=== PATIENT | male | born 1995 | race Caucasian/White ===

== ENCOUNTER 2019-11-03 20:16 | Emergency (ER) | payer OTHER, SELFPAY ==
--- NOTE | 2019-11-03 20:01 | EKG12_ITS ---
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 Rate : 068 BPM Atrial Rate : 068 BPM P-R Int : 152 ms QRS Dur : 100 ms QT Int : 426 ms P-R-T Axes : 027 097 078 degrees QTc Int : 452 ms Normal sinus rhythm Normal ECG Confirmed by MADAY GODINEZ ([id number]), desk editor CATALINA LANIER ([id number] on 11/05/2019 11:57:15 AM Referred By: RONALDO Confirmed By:MADAY GODINEZ
[2019-11-03 20:17] VITALS: BP 120/71; PULSE 57; RESP 17; TEMP 36; O2SAT 99; BMI 21.1
--- NOTE | 2019-11-03 21:07 | ED.VIS.GEN ---
History of Present Illness Chief Complaint: Syncope Informant: Patient Onset: Today Narrative: Patient is a 24-year-old male with no past medical history presenting after syncopal episode. Patient was in the TCU visiting family. He was getting up to leave when he felt dizzy and lightheaded. Patient states he started get tunnel vision. He felt like he might pass out. said he grabbed the door when he like he was falling. She helped lower him to the ground. Patient did not hit his head. Patient came to immediately. She notes he looked a little sweaty when he woke up. EKG and a blood sugar were performed in the TCU and patient was sent down to the emergency room for evaluation. Patient currently states he feels better. He remembers the events except for when he passed out. He denies any complaints at this time. He denies any family history of any sudden cardiac or premature cardiac disease. Past Medical History - Allergies and Home Meds Allergies/Adverse Reactions: Allergies No Known Allergies Allergy (Verified 11/03/19 20:16) Primary Care Physician: Adis Laguna MD [Primary Care Provider] - Past Medical History: None Surgical History: noncontributory Lives: Spouse/ Significant Other Smoking Status: Never smoker Review of Systems General: Reports: - - Syncope. Denies: Chills, Fever, Sweats Eyes: Denies: Visual changes - bilaterally, Diplopia ENT: Denies: Rhinorrhea, Sore throat Cardiovascular: Denies: Chest pain, Palpitations Respiratory: Denies: Dyspnea, Cough, Dyspnea on exertion Gastrointestinal: Denies: Abdominal pain, Nausea, Vomiting, Diarrhea, Melena, Hematochezia Genitourinary: Denies: Dysuria, Hematuria, Frequency Musculoskeletal: Denies: Back pain, Extremity Pain Skin: Denies: Rash, Wounds Neurological: Denies: Headache, Weakness, Numbness Physical Exam Vital Signs/Narrative: Vital Signs Temp Pulse Resp BP Pulse Ox 11/03/19 20:17 96.8 F L 57 L 17 120/71 99 Inital Vital Signs reviewed: Yes General: Well nourished, Well developed, No Acute Distress Head: Normocephalic, Atraumatic Eyes: Perrl, EOMI ENT: Moist mucous membranes, No rhinorrhea Neck: Supple, Nontender Cardiovascular: Regular rate, Regular rhythm, No murmurs Respiratory: No distress, CTA bilaterally, Chest nontender Abdomen: Soft, Nontender, Nondistended, Normal bowel sounds Back: Nontender, Normal Inspection Extremities: Nontender, No edema Skin: Normal color, No rash Neurological: Alert, Oriented x3, Cranial nerves II-XII grossly intact, Normal Strength, Normal Sensation Psychological: Normal affect, Normal Mood Diagnostic/Tx/Re-eval - Medical Decision Making Patient is evaluated after an episode of syncope. Appears to be vasovagal. I did review the EKG from the TCU which shows normal sinus rhythm at a rate of 68. He has normal ST segments with nonspecific T wave inversion and V1 and V2. No signs of HOCM, prolonged QT syndrome, WPW or Brugada. Per report, fingerstick blood glucose was normal. Patient states he like to go home as he feels better. I think this is reasonable. I do not think blood work is indicated at this time as he does have normal vital signs. He is instructed to follow-up with his primary care doctor. Patient is counseled on signs and symptoms requiring return to the emergency room. Patient verbalizes agreement and understand this plan. Patient discharged home in stable and improved condition. ED Disposition - Plan for ED Patient: Disposition: Home or Assisted Living Diagnosis: Vasovagal syncope Instructions: SYNCOPE, Vasovagal Referrals: Adis Laguna MD [Primary Care Provider] -
[2019-11-03 21:21] VITALS: BP 132/70; PULSE 64; RESP 14; O2SAT 99
[2019-11-04 07:20] LABS: Bedside Glucose 84 mg/dL (70-110)
== END 2019-11-03 21:21 | disposition home or self-care (01) ==
PROVIDERS: Emergency Provider Emergency Medicine; PCP Family Medicine
DX: R55 Syncope and collapse (principal)
CPT/HCPCS: 82962; 93005; 99251; 99282; G0463